=== PATIENT | male | born 1940 | race Caucasian/White ===

== ENCOUNTER 2016-12-05 10:56 | Emergency (ER) | payer MEDICARE, OTHER ==
[2016-12-05] MEDS ORDERED: Sodium Chloride 0.9% 10 ML Syringe FLUSH PRN (11:05)
--- NOTE | 2016-12-05 11:30 | CT ---
Head CT Technique: Multiple axial sections through the brain were obtained. Intravenous contrast was not utilized. Comparison: Previous MRI brain of 05/18/16 is available. Findings: Ventricles along with basal cisterns and sulci over convexities are mildly prominent. Diminished density is noted within the periventricular and subcortical white matter compatible with small vessel ischemic demyelination change. 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 No other abnormal parenchymal densities are seen. No evidence of intracranial hemorrhage. No midline shift or mass effect is seen. Atherosclerotic calcification is noted within the right vertebral vessel and within the carotid siphon. Bone window settings were reviewed showing slight mucosal thickening within the ethmoid sinuses which is felt to be incidental. No acute calvarial abnormality is seen. Impression: 1. Senescent change as described above. Nothing acute is identified on noncontrast head CT study. No significant change is seen from previous MRI. Diagnostic code #2
--- NOTE | 2016-12-05 13:05 | EDM.PDOC ---
ED HPI GENERAL MEDICAL PROBLEM - General Chief Complaint: Neurological Problem Stated Complaint: UNABLE TO HEAR Time Seen by Provider: 12/05/16 11:02 Source of Information: Reports: Patient, Family History Limitations: Reports: No Limitations - History of Present Illness INITIAL COMMENTS - FREE TEXT/NARRATIVE: The patient presents with sudden hearing loss. He got up at 7am and was doing good. At 8am his noticed his TV was very loud. He could not hear out of both ears. He denies any other symptoms such as headache, nausea, vomiting, numbness, weakness, fever, chills, cough, chest pain or shortness of breath. He has not had trouble with his hearing before. He has no ear pain or ringing in his ears. Onset: Sudden Duration: Hour(s): (8am) Location: Reports: Head (ears) Severity: Severe Improves with: Reports: None Worsens with: Reports: None Context: Reports: Activity (He was watching TV when it started) Associated Symptoms: Reports: No Other Symptoms - Related Data Allergies Allergy/AdvReac Type Severity Reaction Status Date / Time No Known Allergies Allergy Verified 12/05/16 11:06 Home Meds: Home Meds Aspirin [Cecily Chewable Aspirin] 81 mg PO DAILY 08/22/14 [History] Carvedilol 6.25 mg PO BID 08/22/14 [History] Clopidogrel [Plavix] 75 mg PO DAILY 08/22/14 [History] Finasteride [Proscar] 5 mg PO DAILY 08/22/14 [History] Olmesartan [Benicar] 20 mg PO DAILY 08/22/14 [History] Tamsulosin [Flomax] 0.4 mg PO DAILY 08/22/14 [History] buPROPion [buPROPion XL] 300 mg PO DAILY 05/18/16 [History] Cyanocobalamin (Vitamin B-12) [B-12 Compliance] 1 injection SUBCUT ASDIRECTED [History] Oxybutynin Chloride [Ditropan Xl] 10 mg PO DAILY 05/19/16 [History] Carbidopa/Levodopa [Sinemet Cr 50-200 mg] 2 tab PO TID 05/20/16 [History] Acetaminophen [Tylenol] 650 mg PO Q6H PRN #30 tablet 05/22/16 [Rx] Mirtazapine 7.5 mg PO DAILY 12/05/16 [History] Simvastatin [Simvastatin] 10 mg PO DAILY 12/05/16 [History] Past Medical History HEENT History: Reports: Impaired Vision Cardiovascular History: Reports: Bypass, CA, Stents 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 Gastrointestinal History: Reports: Diverticulosis Other Gastrointestinal History: in pt.Throat Genitourinary History: Reports: Urinary Incontinence Musculoskeletal History: Reports: None Other Musculoskeletal History: musculoskeletal disease Neurological History: Reports: CVA Other Neuro History: akinesia form of parkinsons Hematologic History: Reports: B12 Deficiency Dermatologic History: Reports: Other (See Below) Other Dermatologic History: Lupus - Infectious Disease History Infectious Disease History: Reports: Chicken Pox - Past Surgical History Cardiovascular Surgical History: Reports: Coronary Artery Bypass GI Surgical History: Reports: None Neurological Surgical History: Reports: Other (See Below) Musculoskeletal Surgical History: Reports: Other (See Below) Social & Family History - Family History Family Medical History: Unobtainable - Tobacco Use Smoking Status *Q: Never Smoker Years of Tobacco use: 40 Packs/Tins Daily: 1.5 Used Tobacco, but Quit: Yes Month Tobacco Last Used: 03/2016 Second Hand Smoke Exposure: No - Caffeine Use Caffeine Use: Reports: Coffee Other Caffeine Use: 1 cup a day - Alcohol Use Days Per Week of Alcohol Use: 0 - Recreational Drug Use Recreational Drug Use: No ED ROS GENERAL - Review of Systems Review Of Systems: See Below Constitutional: Reports: No Symptoms HEENT: Reports: Hearing Loss Respiratory: Reports: No Symptoms Cardiovascular: Reports: No Symptoms Endocrine: Reports: No Symptoms GI/Abdominal: Reports: No Symptoms : Reports: No Symptoms Musculoskeletal: Reports: No Symptoms Skin: Reports: No Symptoms Neurological: Reports: No Symptoms ED EXAM, NEURO - Physical Exam Exam: See Below Exam Limited By: No Limitations General Appearance: Alert, No Apparent Distress Eye Exam: Bilateral Eye: EOMI Ears: Normal External Exam Nose: Normal Inspection Throat/Mouth: Normal Inspection Head Exam: Atraumatic, Normocephalic Neck: Normal Inspection Respiratory/Chest: No Respiratory Distress, Lungs Clear, Normal Breath Sounds Cardiovascular: Regular Rate, Rhythm, No Edema, No Murmur GI/Abdominal: Soft, Non-Tender, No Organomegaly, No Mass Neurological: Alert, No Motor/Sensory Deficits, Oriented x 3 EKG INTERPRETATION EKG Date: 12/05/16 Time: 13:30 Rhythm: NSR Rate (beats/min): 64 [place]: LAD-left axis deviation P-wave: present QRS: wide (Nonspecific IVCD) ST-T: normal QT: normal EKG Interpretation Comments: Anterior Q waves Course - Vital Signs Last Recorded V/S: Last Vital Signs Temp 98.7 F 12/05/16 11:06 Pulse 64 12/05/16 11:06 Resp 15 12/05/16 11:06 BP 141/85 H 12/05/16 11:06 Pulse Ox 99 12/05/16 11:06 - Orders/Labs/Meds Orders: Active Orders 24 hr Category Date Time Status Cardiac Monitoring [RC] . DIRECTED Care 12/05/16 11:05 Active EKG Documentation Completion [RC] STAT Care 12/05/16 11:07 Active Peripheral IV Care [RC] . DIRECTED Care 12/05/16 11:07 Active Sodium Chloride 0.9% [Saline Flush] Med 12/05/16 11:05 Active 10 ml FLUSH ASDIRECTED PRN Peripheral IV Insertion Adult [OM.PC] Stat Oth 12/05/16 11:05 Ordered Medication Orders Sodium Chloride (Saline Flush) 10 ml FLUSH ASDIRECTED PRN PRN Reason: Keep Vein Open Last Admin: 12/05/16 11:00 Dose: 10 ml Labs: Laboratory Tests 12/05/16 12/05/16 12/05/16 Range/Units 11:04 11:04 11:04 WBC 4.22 L (4.23-9.07) K/mm3 RBC 4.89 (4.63-6.08) M/mm3 Hgb 15.2 (13.7-17.5) gm/L Hct 45.0 (40.1-51.0) % MCV 92.0 (79.0-92.2) fl MCH 31.1 (25.7-32.2) pg MCHC 33.8 (32.2-35.5) g/dl RDW Std Deviation 42.5 (35.1-43.9) fL Plt Count 128 L (163-337) K/mm3 MPV 10.4 (9.4-12.3) fl Neut % (Auto) 68.6 H (34.0-67.9) % Lymph % (Auto) 17.5 L (21.8-53.1) % [place] % (Auto) 10.7 (5.3-12.2) % Eos % (Auto) 2.8 (0.8-7.0) Baso % (Auto) 0.2 (0.1-1.2) % Neut # (Auto) 2.89 (1.78-5.38) K/mm3 Lymph # (Auto) 0.74 L (1.32-3.57) K/mm3 [place] # (Auto) 0.45 (0.30-0.82) K/mm3 Eos # (Auto) 0.12 (0.04-0.54) K/mm3 Baso # (Auto) 0.01 (0.01-0.08) K/mm3 Sodium 143 (136-145) mEq/L Potassium 3.9 (3.5-5.1) mEq/L Chloride 107 (98-107) mEq/L Carbon Dioxide 30 (21-32) mEq/L Anion Gap 9.9 (5-15) BUN 15 (7-18) mg/dL Creatinine 1.0 (0.7-1.3) mg/dL Est Cr Clr Drug Dosing 56.13 mL/min Estimated GFR (MDRD) > 60 (>60) mL/min BUN/Creatinine Ratio 15.0 (14-18) Glucose 96 (83-115) mg/dL POC Glucose 108 (83-110) mg/dL Calcium 9.1 (8.5-10.1) mg/dL Total Bilirubin 0.5 (0.2-1.0) mg/dL AST 23 (15-37) U/L ALT 13 L (16-63) U/L Alkaline Phosphatase 64 (46-116) U/L Troponin I < 0.017 (0.00-0.056) ng/mL Total Protein 7.5 (6.4-8.2) g/dl Albumin 3.7 (3.4-5.0) g/dl Globulin 3.8 gm/dL Albumin/Globulin Ratio 1.0 (1-2) Meds: Medications Generic Name Dose Route Start Last Admin Trade Name Freq PRN Reason Stop Dose Admin Sodium Chloride 10 ml 12/05/16 11:05 12/05/16 11:00 Saline Flush FLUSH 10 ml ASDIRECTED PRN Administration Keep Vein Open - Re-Assessments/Exams Free Text/Narrative Re-Assessment/Exam: 12/05/16 13:28 The patient was last known well at 8am. A stroke alert was called. His EKG shows a NSR and LBBB. His CT shows nothing acute. His CBC and CMP look good. His tropnin is negative. His hearing is coming back. I called Dr Salinas's office and they could work him in around 4pm. His came in and she wanted to wait to see Dr Salinas. I called his office back to let them know. 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 Call [phone]. Keep taking your medication as prescribed. Please return if you are worse. - My Orders Last 24 Hours: My Active Orders 12/05/16 11:05 Cardiac Monitoring [RC] . DIRECTED Sodium Chloride 0.9% [Saline Flush] 10 ml FLUSH ASDIRECTED PRN Peripheral IV Insertion Adult [OM.PC] Stat 12/05/16 11:07 EKG Documentation Completion [RC] STAT Peripheral IV Care [RC] . DIRECTED - Assessment/Plan Last 24 Hours: My Active Orders 12/05/16 11:05 Cardiac Monitoring [RC] . DIRECTED Sodium Chloride 0.9% [Saline Flush] 10 ml FLUSH ASDIRECTED PRN Peripheral IV Insertion Adult [OM.PC] Stat 12/05/16 11:07 EKG Documentation Completion [RC] STAT Peripheral IV Care [RC] . DIRECTED
[2016-12-05 13:37] VITALS: BP 140/63
== END 2016-12-05 13:37 | disposition home or self-care (01) ==
LOC: JD.ED 10:56
DX: H91.93 Unspecified hearing loss, bilateral (principal); I25.2 Old myocardial infarction; M32.9 Systemic lupus erythematosus, unspecified; Z95.5 Presence of coronary angioplasty implant and graft; Z86.73 Personal history of transient ischemic attack (TIA), and cerebral infarction without residual deficits; Z95.1 Presence of aortocoronary bypass graft; Z87.891 Personal history of nicotine dependence; Z79.82 Long term (current) use of aspirin; Z79.02 Long term (current) use of antithrombotics/antiplatelets; Z79.899 Other long term (current) drug therapy
CPT/HCPCS: 36415; 70450; 80053; 82962; 84484; 85025; 93005; 99284; J7050